=== PATIENT | male | born 1960 | race Caucasian/White ===

== ENCOUNTER 2021-01-11 18:17 | Emergency (ER) | payer OTHER ==
[~2021-01-11] VITALS: Ht 182.9 cm; Wt 100.0 kg
[2021-01-11] MEDS ORDERED: DEXAMETHASONE 4 MG TABLET PO ONE (19:15)
[2021-01-11] MEDS ORDERED: IPRATRPIUM/ALBUTEROL 0.5/2.5MG 3 ML NEBU. NEB ONE (19:15)
[2021-01-11 19:20] LABS: BASO # 0.1 x10^3/uL (0.0-0.2); BASO % 1 % (0-3); EOS # 0.3 x10^3/uL (0.0-0.7); EOS % 3 % (0-3); HEMATOCRIT 44.8 % (39.0-53.0); HEMOGLOBIN 14.5 g/dL (13.0-17.5); LYMPH # 0.8 x10^3/uL (1.0-4.8); LYMPH % 9 % (24-48); MEAN CORPUSCULAR HEMOGLOBIN 32 pg (25-35); MEAN CORPUSCULAR HGB CONC 32 g/dL (31-37); MEAN CORPUSCULAR VOLUME 98 fL (79-100); MONO # 0.5 x10^3/uL (0.0-1.1); MONO % 6 % (0-9); NEUT # 7.4 x10^3uL (1.8-7.7); NEUT % 82 % (31-73); PLATELET COUNT 253 x10^3/uL (140-400); RED BLOOD COUNT 4.56 x10^6/uL (4.30-5.70); RED CELL DISTRIBUTION WIDTH 13.8 % (11.5-14.5)
[2021-01-11 19:24] LABS: CALCIUM 8.9 mg/dL (8.5-10.1); CREATININE 0.7 mg/dL (0.7-1.3); GFR 114.3; POTASSIUM 3.9 mmol/L (3.5-5.1)
[2021-01-11] MEDS ORDERED: IPRATRPIUM/ALBUTEROL 0.5/2.5MG 3 ML NEBU. ONE (19:29)
[2021-01-11] MEDS ORDERED: DEXAMETHASONE 4 MG TABLET ONE (20:38)
--- NOTE | 2021-01-11 20:52 | RAD ---
Exam: Chest one view INDICATION: Shortness of breath TECHNIQUE: Frontal view of the chest Comparisons: None FINDINGS: The cardiomediastinal silhouette and pulmonary vessels are within normal limits. The lung and pleural spaces are clear. IMPRESSION: No acute cardiopulmonary process. Electronically signed by: Antonia Odell MD (01/11/2021 8:49 PM) DENISE
[2021-01-11] MEDS ORDERED: DOXY100C2 PO (21:23)
--- NOTE | 2021-01-11 21:23 | PHYS DOC ---
Past History Past Medical History: COPD Past Surgical History: No Surgical History Additional Smoking Information: 1 PPD Alcohol Use: None Adult General Chief Complaint Chief Complaint: DIFFICULTY SWALLOWING HPI HPI Patient is a 60-year-old male with a past medical history significant for COPD and asthma who presents with a chief complaint of increased cough, wheezing and sputum production over the last 3 days. Denies any headache, chest pain, abdominal pain, nausea, vomiting, diarrhea, dysuria, hematuria or blood in the stool. Denies any recent travel or known ill contacts. Denies any fevers, sore throat. Does endorse some nasal congestion as well over the last couple of days. States he is taking all his medications as prescribed. States he has been doing his breathing treatments at home with which did help a little. Review of Systems Review of Systems Review of systems otherwise unremarkable except noted in HPI. Current Medications Current Medications Current Medications Medications (Trade) Dose Ordered Sig/Jovita Start Time Stop Time Status Last Admin Dose Admin Albuterol/ Ipratropium (Duoneb) 3 ml 1X ONCE 01/11/21 19:15 01/11/21 19:16 UNV 01/11/21 19:30 3 ML Dexamethasone (Decadron) 10 mg 1X ONCE 01/11/21 19:15 01/11/21 19:16 UNV 01/11/21 20:41 10 MG Physical Exam Physical Exam Constitutional: Well developed, well nourished, no acute distress, non-toxic appearance. [] HENT: Normocephalic, atraumatic, bilateral external ears normal, oropharynx moist, no oral exudates, obvious bilateral nasal congestion which clears with nasal blowing.] Eyes: conjunctiva normal, no discharge. [] Neck: Normal range of motion, no tenderness, supple, no stridor. [] Cardiovascular:Heart rate regular rhythm, no murmur [] Lungs & Thorax: Patient has bilateral rhonchi, worse on the right than the left Abdomen: Bowel sounds normal, soft, no tenderness, no masses, no pulsatile masses. [] Skin: Warm, dry, no erythema, no rash. [] Back: No tenderness, Extremities: No tenderness, no cyanosis, no clubbing, ROM intact, no edema. [] Neurologic: Alert and oriented X 3, normal motor function, normal sensory function, no focal deficits noted. [] Psychologic: Affect normal, judgement normal, mood normal. [] Current Patient Data Vital Signs Vital Signs Date Time Temp Pulse Resp B/P (MAP) Pulse Ox O2 Delivery O2 Flow Rate FiO2 01/11/21 19:05 97.7 110 24 94 Room Air Lab Results Laboratory Tests Test 01/11/21 18:43 White Blood Count 9.0 x10^3/uL (4.0-11.0) Red Blood Count 4.56 x10^6/uL (4.30-5.70) Hemoglobin 14.5 g/dL (13.0-17.5) Hematocrit 44.8 % (39.0-53.0) Mean Corpuscular Volume 98 fL (79-100) Mean Corpuscular Hemoglobin 32 pg (25-35) Mean Corpuscular Hemoglobin Concent 32 g/dL (31-37) Red Cell Distribution Width 13.8 % (11.5-14.5) Platelet Count 253 x10^3/uL (140-400) Neutrophils (%) (Auto) 82 % (31-73) H Lymphocytes (%) (Auto) 9 % (24-48) L Monocytes (%) (Auto) 6 % (0-9) Eosinophils (%) (Auto) 3 % (0-3) Basophils (%) (Auto) 1 % (0-3) Neutrophils # (Auto) 7.4 x10^3uL (1.8-7.7) Lymphocytes # (Auto) 0.8 x10^3/uL (1.0-4.8) L Monocytes # (Auto) 0.5 x10^3/uL (0.0-1.1) Eosinophils # (Auto) 0.3 x10^3/uL (0.0-0.7) Basophils # (Auto) 0.1 x10^3/uL (0.0-0.2) D-Dimer (Clare) 0.62 mg/L (0.00-0.50) H Sodium Level 136 mmol/L (136-145) Potassium Level 3.9 mmol/L (3.5-5.1) Chloride Level 102 mmol/L (98-107) Carbon Dioxide Level 27 mmol/L (21-32) Anion Gap 7 (6-14) Blood Urea Nitrogen 10 mg/dL (8-26) Creatinine 0.7 mg/dL (0.7-1.3) Estimated GFR (Cockcroft-Gault) 114.3 Glucose Level 95 mg/dL (70-99) Calcium Level 8.9 mg/dL (8.5-10.1) Troponin I Quantitative < 0.017 ng/mL (0-0.055) EKG EKG Rate of 105, QRS of 94, QTc of 443, no STEMI [] Radiology/Procedures Radiology/Procedures Chest x-ray not concerning. [] Heart Score Risk Factors: Risk Factors: DM, Current or recent (<one month) smoker, HTN, HLP, family history of CAD, obesity. Risk Scores: Risk Factors: DM, Current or recent (<one month) smoker, HTN, HLP, family history of CAD, obesity. Course & Med Decision Making Course & Med Decision Making Patient is a 60-year-old male who presents with a couple of days of cough with increased sputum and nasal congestion with wheezing Vital signs initially notable for tachycardia and hypertension. Physical exam noted above. EKG noted above, with no STEMI. Troponin normal. Chest x-ray not concerning. Offered Covid swab, but patient declined. Offered further observation in the ED for serial EKGs/troponins and another breathing treatment. Also offered a CT of the chest given that his D-dimer was borderline which could indicate a blood clot in his lungs. Patient stated that he has never had a blood clot and thinks that his cough and congestion are due to a cold and not a blood clot. Given risks of blood clots in the legs and lungs including significant pain, difficulty breathing, sickness and need for hospitalization and in the worst case scenario . Patient politely declined saying he was feeling much better and is ready to be discharged home. Patient given a DuoNeb x2 and steroids. Given dose of cough syrup. Started on doxycycline in the ED for probable COPD exacerbation. Discussed symptom management at home. Advised to call his primary care physician first thing in the morning to discuss his ED visit and set up a follow-up visit as soon as possible. Gave strict return precautions to the ED. Patient grateful, verbalized understanding and agreed with plan of discharge. [] Dragon Disclaimer Dragon Disclaimer This electronic medical record was generated, in whole or in part, using a voice recognition dictation system. Departure Departure: Impression: Primary Impression: Wheeze Additional Impressions: Cough Sputum production Elevated d-dimer Disposition: 01 DC HOME SELF CARE/HOMELESS Condition: GOOD Referrals: YOSHI GOLDSTEIN DO (PCP) Patient Instructions: Chronic Obstructive Pulmonary Disease Exacerbation, Cough, Adult Additional Instructions: Please read the attached information. Please take your antibiotics as prescr ibed. As discussed you can also use [id number] cough medicine and Afrin for nasal congestion. Please call your primary care physician first thing in the morning to update on ED visit and set up a follow-up visit as soon as possible. Please come back to the ED immediately with new or concerning symptoms. Scripts Doxycycline Hyclate (DOXYCYCLINE HYCLATE) 100 Mg Capsule 1 CAP PO BID for copd for 7 Days, #13 CAP Prov: LEXIE CRAWFORD MD 01/11/21 Problem Qualifiers LEXIE CRAWFORD MD Jan 11, 2021 21:23
[2021-01-11] MEDS ORDERED: guaiFENesin DM 200MG/20MG 10 ML SYRUP ONE (21:28)
[2021-01-11] MEDS ORDERED: DOXYCYCLINE HYCLATE 100 MG TABLET ONE (21:28)
[2021-01-11 21:30] VITALS: BP 134/68
[2021-01-11] MEDS ORDERED: guaiFENesin DM 200MG/20MG 10 ML SYRUP PO ONE (21:30)
[2021-01-11] MEDS ORDERED: DOXYCYCLINE HYCLATE 100 MG TABLET PO ONE (21:30)
--- NOTE | 2021-01-11 21:52 | EKG ---
[address] [address] Test Date: 2021-01-11 Test Time: 19:48:59 Pat Name: PADMINI GUO Department: Room: Gender: M Payroll Director: : [id number] Requested By: LEXIE CRAWFORD Order Number: [id number] Reading MD: Measurements Intervals Deposit Rate: 105 P: 74 OH: 176 QRS: 59 QRSD: 94 T: 63 QT: 332 QTc: 443 Interpretive Statements SINUS TACHYCARDIA OTHERWISE NORMAL ECG RI6.02 No previous ECG available for comparison
== END 2021-01-11 21:30 | disposition home or self-care (01) ==
LOC: ER 18:17
DX: R79.89 Other specified abnormal findings of blood chemistry (principal); R05 Cough; R09.81 Nasal congestion; J44.9 Chronic obstructive pulmonary disease, unspecified
CPT/HCPCS: 36415; 71045; 80048; 84484; 85025; 85379; 93005; 94640; 99285; J8540

== ENCOUNTER 2021-08-23 06:59 | Emergency (ER) | payer OTHER ==
[~2021-08-23] VITALS: Ht 190.5 cm; Wt 96.0 kg
[~2021-08-23 06:59] MED LIST: DOXY100C3 PO
--- NOTE | 2021-08-23 07:41 | PHYS DOC ---
Past History Past Medical History: COPD Additional Past Medical Histor: seasonal allergies Past Surgical History: Other Additional Past Surgical Histo: cardiac stents, neck fusion C4-C6 Alcohol Use: Heavy Additional Alcohol Information: 6 pk daily General Adult EDM: Chief Complaint: LOWER EXT PAIN HPI: HPI: 61-year-old male presents with right lateral foot pain. The patient does not recall any trauma. He went to get up this morning and when he put weight on his right foot he had pain along the lateral border of the foot. It is tender to palpation. He is able to put pressure on his calcaneus but not with the foot flat on the floor. He has no other complaints this time. Review of Systems: Review of Systems: Constitutional: Denies fever or chills Eyes: Denies change in visual acuity HENT: Denies nasal congestion or sore throat Respiratory: Denies cough or shortness of breath Cardiovascular: Denies chest pain or edema GI: Denies abdominal pain, nausea, vomiting, bloody stools or diarrhea : Denies dysuria Musculoskeletal: Right lateral foot pain Integument: Denies rash Neurologic: Denies headache, focal weakness or sensory changes Endocrine: Denies polyuria or polydipsia Lymphatic: Denies swollen glands Psychiatric: Denies depression or anxiety Allergies: Allergies: Allergies Coded Allergies Type Severity Reaction Last Updated Verified No Known Allergies Allergy Unknown 01/11/21 Yes Physical Exam: PE: Constitutional: Well developed, well nourished, no acute distress, non-toxic appearance. [] HENT: Normocephalic, atraumatic, bilateral external ears normal, oropharynx mo ist, no oral exudates, nose normal. [] Eyes: PERRLA, EOMI, conjunctiva normal, no discharge. [] Neck: Normal range of motion, no tenderness, supple, no stridor. [] Cardiovascular: Heart rate regular rhythm, no murmur [] Lungs & Thorax: Bilateral breath sounds clear to auscultation [] Abdomen: Bowel sounds normal, soft, no tenderness, no masses, no pulsatile masses. [] Skin: Warm, dry, no erythema, no rash. [] Back: No tenderness, no CVA tenderness. [] Extremities: Tenderness laterally with mild swelling of the right foot, no ecchymosis or deformity. [] Neurologic: Alert and oriented X 3, normal motor function, normal sensory function, no focal deficits noted. [] Psychologic: Affect normal, judgement normal, mood normal. [] Current Patient Data: Vital Signs: Vital Signs Date Time Temp Pulse Resp B/P (MAP) Pulse Ox O2 Delivery O2 Flow Rate FiO2 08/23/21 07:15 97.9 100 24 124/90 (101) 95 Room Air EKG: EKG: [] Radiology/Procedures: Radiology/Procedures: [] Impressions: EXAM: AP, oblique and lateral views DATE: 08/23/2021 7:38 AM INDICATION: Reason: lateral foot pain / Spl. Instructions: / History: . COMPARISON: No Prior FINDINGS: Avulsion fracture of the base of the fifth metatarsal tubercle is approximately 3 mm displaced. Moderate overlying soft tissue swelling. Decreased bone mineral density. Old/healed fourth and fifth proximal phalanx fractures. Calcaneal enthesophytes. Midfoot degenerative changes. IMPRESSION: 1. Acute fracture at the base of the fifth metatarsal tubercle is minimally displaced. Moderate overlying soft tissue swelling. 2. Decreased bone mineral density. Electronically signed by: Santiago Irvin MD (08/23/2021 7:58 AM) [id number] DICTATED AND SIGNED BY: SANTIAGO IRVIN MD DATE: 08/23/21 0754 CC: PADMINI ACRRINGTON DO; MARE GERONIMO DO ~MTH0 0 Heart Score: C/O Chest Pain: N/A Risk Factors: Risk Factors: DM, Current or recent (<one month) smoker, HTN, HLP, family history of CAD, obesity. Risk Scores: Score 0 - 3: 2.5% MACE over next 6 weeks - Discharge Home Score 4 - 6: 20.3% MACE over next 6 weeks - Admit for Clinical Observation Score 7 - 10: 72.7% MACE over next 6 weeks - Early Invasive Strategies Course & Med Decision Making: Course & Med Decision Making Pertinent Labs and Imaging studies reviewed. (See chart for details) The patient does have a base fifth metatarsal fracture that is minimally displaced. We will put the patient in orthopedic shoe and advised him to use crutches until he speaks with outpatient orthopedics. He is stable for discharge at this time. [] Dragon Disclaimer: Dragon Disclaimer: This electronic medical record was generated, in whole or in part, using a voice recognition dictation system. Departure Departure: Impression: Primary Impression: Fracture of fifth metatarsal bone of right foot Qualified Codes: S92.351A - Displaced fracture of fifth metatarsal bone, right foot, initial encounter for closed fracture Referrals: PADMINI CARRINGTON DO (PCP) Patient Instructions: Foot Fracture MARE GERONIMO DO Aug 23, 2021 07:41
--- NOTE | 2021-08-23 08:01 | RAD ---
EXAM: AP, oblique and lateral views DATE: 08/23/2021 7:38 AM INDICATION: Reason: lateral foot pain / Spl. Instructions: / History: . COMPARISON: No Prior FINDINGS: Avulsion fracture of the base of the fifth metatarsal tubercle is approximately 3 mm displaced. Moder ate overlying soft tissue swelling. Decreased bone mineral density. Old/healed fourth and fifth proxi mal phalanx fractures. Calcaneal enthesophytes. Midfoot degenerative changes. IMPRESSION: 1. Acute fracture at the base of the fifth metatarsal tubercle is minimally displaced. Moderate over lying soft tissue swelling. 2. Decreased bone mineral density. Electronically signed by: Santiago Irvin MD (08/23/2021 7:58 AM) [id number]
[2021-08-23 08:50] VITALS: BP 119/82
== END 2021-08-23 09:29 | disposition home or self-care (01) ==
LOC: ER 06:59
DX: S92.351A Displaced fracture of fifth metatarsal bone, right foot, initial encounter for closed fracture (principal); J44.9 Chronic obstructive pulmonary disease, unspecified; F10.20 Alcohol dependence, uncomplicated; Y90.9 Presence of alcohol in blood, level not specified; X58.XXXA Exposure to other specified factors, initial encounter; Y93.89 Activity, other specified; Y92.89 Other specified places as the place of occurrence of the external cause; Y99.8 Other external cause status
CPT/HCPCS: 73630; 99283

== ENCOUNTER → 2021-09-22 | Outpatient (CLI) | payer OTHER ==
[2021-08-23 08:50] VITALS: BP 119/82
--- NOTE | 2021-09-22 16:08 | RAD ---
XR FOOT_RIGHT 3 VIEWS 09/22/2021 Reason: WEIGHT BEARING, FOLLOW UP 5TH METATARSEL FX Comparison: Foot radiograph 08/23/2021 Technique: 3 views of the right foot, weightbearing Findings: Redemonstration of fractures at the base of the fifth metatarsal with slight increased displacement. There are sclerotic margins. Bone mineralization is decreased. Degenerative changes first interphalan geal joint. Remote fractures of the fourth and fifth proximal phalanges. Impression: When compared to the prior study there is increased displacement of the fractures of the base of the fifth metatarsal, possibly due to these being weightbearing films. Electronically signed by: Yordy Freeman (09/22/2021 4:06 PM) [id number]
== END ==
LOC: RAD 11:57
PROVIDERS: ATTEND Podiatrist
DX: S92.351D Displaced fracture of fifth metatarsal bone, right foot, subsequent encounter for fracture with routine healing (principal); M81.8 Other osteoporosis without current pathological fracture; M19.071 Primary osteoarthritis, right ankle and foot; X58.XXXD Exposure to other specified factors, subsequent encounter
CPT/HCPCS: 73630

== ENCOUNTER → 2021-10-20 | Outpatient (CLI) | payer OTHER ==
--- NOTE | 2021-10-20 16:56 | RAD ---
EXAM: Standing 3 views right foot DATE: 10/20/2021 12:32 PM INDICATION: Reason: WEIGHTBEARING, RIGHT FOOT FX / Spl. Instructions: / History: . COMPARISON: 09/22/2021 FINDINGS/ IMPRESSION: 1. Nondisplaced fracture at the base of the fifth metatarsal is stable in alignment although there i s mild cortication of the margins. No definite bony bridging at the tubercle portion of the fracture although CT is more sensitive. 2. Marked osteopenia. 3. Calcaneal enthesophytes. 4. Flexion deformity of the toes. 5. Old/healed fourth and fifth toe proximal phalanx fractures. 6. Decreased bone mineral density. 7. Pes planus. Electronically signed by: Santiago Irvin MD (10/20/2021 4:54 PM) [id number]
== END ==
LOC: RAD 12:25
PROVIDERS: ATTEND Podiatrist
DX: S92.354D Nondisplaced fracture of fifth metatarsal bone, right foot, subsequent encounter for fracture with routine healing (principal); M85.871 Other specified disorders of bone density and structure, right ankle and foot; M77.31 Calcaneal spur, right foot; M21.271 Flexion deformity, right ankle and toes; M21.41 Flat foot [pes planus] (acquired), right foot; X58.XXXD Exposure to other specified factors, subsequent encounter
CPT/HCPCS: 73630